=== PATIENT | female | born 1985 | race Caucasian/White ===

== ENCOUNTER → 2016-05-01 | Outpatient (CLI) | payer OTHER ==
[~2016-05-01] MED LIST: GABA1CAP PO; LEXAPRO PO; TRAZ100T29 PO
[2016-05-01 12:10] LABS: BASO % 0.2 %; BASO ABS # 0.03 K/uL (0-0.2); COMPLETE YES; EOS % 1.4 %; HEMATOCRIT 41.7 % (37-47); IG% 0.2 %; LYMPH % 20.5 %; LYMPH ABS # 2.55 K/uL (1.2-3.4); MEAN CELL VOLUME 91.9 fL (80-100); MEAN CORPUSCULAR HEMOGLOBIN 30.8 pg (25-34); MEAN CORPUSCULAR HGB CONC 33.6 g/dl (32-36); MEAN PLATELET VOLUME 9.9 fL (7.4-10.4); MONO % 6.3 %; NEUT % 71.4 %; PLATELET COUNT 333 K/uL (130-400); RED BLOOD COUNT 4.54 M/uL (4.2-5.4); WHITE BLOOD COUNT 12.41 K/uL (4.8-10.8)
[2016-05-01 12:32] LABS: ALT/SGPT 30 U/L (12-78); BLOOD UREA NITROGEN 12 mg/dl (7-18); BUN/CREATININE RATIO 12.2 (10-20); CALCIUM 8.3 mg/dl (8.5-10.1); CARBON DIOXIDE 24 mmol/L (21-32); CHLORIDE 109 mmol/L (98-107); CHOLESTEROL 127 mg/dl (0-200); CREATININE 0.96 mg/dl (0.60-1.20); GLUCOSE 98 mg/dl (70-99); POTASSIUM 4.1 mmol/L (3.5-5.1); SODIUM 141 mmol/L (136-145); TRIGLYCERIDES 136 mg/dl (0-150); VERY LOW DENSITY LIPOPROT CALC 27 mg/dl
[2016-05-01 12:42] LABS: ALB/GLOB RATIO 1.3 (0.9-2); ALKALINE PHOSPHATASE 43 U/L (45-117); AST/SGOT 17 U/L (15-37); CHOLESTEROL/HDL RATIO 3.1; HDL CHOLESTEROL 41 mg/dl; LDL CHOLESTEROL CALCULATED 59 mg/dl
== END | disposition home or self-care (01) ==
LOC: C.LAB1850 10:42
PROVIDERS: ATTEND Nurse Practitioner Family
DX: Z13.1 Encounter for screening for diabetes mellitus (principal); Z13.220 Encounter for screening for lipoid disorders

== ENCOUNTER → 2016-05-29 | Outpatient (CLI) | payer OTHER ==
--- NOTE | 2016-05-29 10:02 | DIAGNOSTIC IMAGING REPORT ---
LEFT FOOT MIN 3 VIEWS ROUTINE CLINICAL HISTORY: BILATERAL FOOT PAIN pain COMPARISON: None. DISCUSSION: Small bunion deformity distal first metatarsal. All remaining osseous structures are unremarkable. Alignment is anatomic. Bone mineralization within normal limits. There is no evidence for soft tissue swelling. IMPRESSION: Small bunion deformity distal first metatarsal. Otherwise negative study Electronically signed by: Blake Guerin M.D. 05/29/2016 10:01 AM Dictated Date/Time: 05/29/2016 10:00 AM
--- NOTE | 2016-05-29 10:03 | DIAGNOSTIC IMAGING REPORT ---
RIGHT FOOT MIN 3 VIEWS ROUTINE CLINICAL HISTORY: BUNIONS Right pain COMPARISON: None. DISCUSSION: Small bunion deformity distal first metatarsal. All remaining osseous structures are unremarkable. No abnormal depressed reaction. Cortical margins are intact. There is no evidence for soft tissue swelling. IMPRESSION: Small bunion distal aspect first metatarsal Electronically signed by: Blake Guerin M.D. 05/29/2016 10:02 AM Dictated Date/Time: 05/29/2016 10:02 AM
--- NOTE | 2016-05-31 11:50 | CODING QUERY NO DIAGNOSIS ---
: 1985 TREATMENT RENDERED WITHOUT A DIAGNOSIS To promote full compliance with coding requirements relating to patient care, physician participation is requested in all cases of sawmill supervisor uncertainty. Please assist us with providing a diagnosis/symptom for the test(s) below: A diagnosis/symptom was not documented on your Order. A valid diagnosis/symptom is required to bill all insurances. Please remember that we are unable to code a diagnosis of rule out, probable, possible, questionable, or suspected. Tests that require a diagnosis: DOS: 05/29/16 * Bilateral Foot X-rays DIAGNOSIS: Provider Signature: Date: Thank you Silvana Pantoja Health Information Management Once completed, please kindly fax back to [phone] For questions please call [phone]
== END | disposition home or self-care (01) ==
LOC: C.RAD 09:27
PROVIDERS: ATTEND Podiatrist Foot & Ankle Surgery
DX: M77.8 Other enthesopathies, not elsewhere classified (principal); M20.12 Hallux valgus (acquired), left foot; M20.11 Hallux valgus (acquired), right foot; M21.612 Bunion of left foot; M21.611 Bunion of right foot

== ENCOUNTER → 2017-04-28 | Outpatient (CLI) | payer OTHER ==
[2017-04-28 12:59] LABS: BASO % 0.5 %; BASO ABS # 0.05 K/uL (0-0.2); EOS % 8.7 %; EOS ABS # 0.84 K/uL (0-0.5); HEMATOCRIT 39.6 % (37-47); HEMOGLOBIN 13.1 g/dL (12.0-16.0); IG# 0.02 K/uL (0.00-0.02); LYMPH % 32.7 %; LYMPH ABS # 3.17 K/uL (1.2-3.4); MEAN CELL VOLUME 93.4 fL (80-100); MEAN CORPUSCULAR HEMOGLOBIN 30.9 pg (25-34); MEAN CORPUSCULAR HGB CONC 33.1 g/dl (32-36); MEAN PLATELET VOLUME 9.5 fL (7.4-10.4); MONO % 7.4 %; MONO ABS # 0.72 K/uL (0.11-0.59); NEUT % 50.5 %; NEUT ABS # 4.89 K/uL (1.4-6.5); PLATELET COUNT 309 K/uL (130-400); RED CELL DISTRIBUTION WIDTH CV 12.7 % (11.5-14.5); RED CELL DISTRIBUTION WIDTH SD 43.5 fL (36.4-46.3); WHITE BLOOD COUNT 9.69 K/uL (4.8-10.8)
[2017-04-28 13:26] LABS: T3 FREE 2.9 pg/ml (2.30-4.20)
[2017-04-28 13:33] LABS: ALBUMIN 3.5 gm/dl (3.4-5.0); ALT/SGPT 21 U/L (12-78); AST/SGOT 10 U/L (15-37); BLOOD UREA NITROGEN 7 mg/dl (7-18); CARBON DIOXIDE 29 mmol/L (21-32); CREATININE 0.84 mg/dl (0.60-1.20); GLUCOSE 93 mg/dl (70-99); POTASSIUM 4.1 mmol/L (3.5-5.1); SODIUM 136 mmol/L (136-145)
[2017-04-28 13:46] LABS: ALKALINE PHOSPHATASE 56 U/L (45-117); TOTAL PROTEIN 6.9 gm/dl (6.4-8.2)
== END | disposition home or self-care (01) ==
LOC: C.LAB 12:12
PROVIDERS: ATTEND Nurse Practitioner Family
DX: R53.83 Other fatigue (principal)

== ENCOUNTER 2023-08-02 22:14 | Inpatient (IN) ==
--- OUTSIDE RECORDS SUMMARY | 2023-08-02 22:40 | External Medical Summary | Summary of Care ---
Author Name Unknown Organization [facility] Address [address] [place] [address] Phone [phone] Care Team Providers Care Cath Lab Tech Name Role Phone Harman Helm Primary Care Provider [phone] Reason for Visit * Reason Comments Return Visit Encounter Details Date Type Department Care Team (Late st Contact Info) Description 07/29/2023 8:15 AM EDT Office Visit Gynecology/Obstetric s [facility] Salazar [address] [place] [address] Monica Chavis CRNP [address] [facility] [place] [address] Multigravida of advanced maternal age in third trimester*; Normal in third trimester; Factor V Leiden mutation affecting (HCC); Antepartum anemia; Uterine size date discrepancy Allergies No known active allergiesdocumented as of this encounter (statuses as of 07/29/2023) Medications Medication Sig Dispensed Refills Start Date End Date Status 19 29-1 MG Oral Tablet Chewable Take by mouth. 0 Active Aspirin 81 MG Oral Tablet Chewable Take 1 Tablet by mouth in the morning. 0 Active Breast PumpIndications:[place]yen st feeding status of mother KAYE 08/02/23, Z39.1, double electric pump 1 Each 0 05/11/2023 Active Vitron-C 65-125 MG Oral Tablet (Iron-Vitamin C 65-125 mg per tab)Indications:Ante anemia Take 1 Tablet by mouth in the morning and 1 Tablet before bedtime. 90 Tablet 2 05/12/2023 Active Docusate Sodium 100 MG Oral Capsule (Colace)Indications: Antepartum anemia Take 1 Capsule by mouth 2 times a day as needed for Constipation. 60 Capsule 5 05/12/2023 Active documented as of this encounter (statuses as of 07/29/2023) Active Problems Problem Noted Date Diagnosed Date Abnormal GTT (glucose tolerance test) 05/12/2023 Antepartum anemia 05/12/2023 Normal 05/11/2023 Factor V Leiden mutation affecting 08/2023 Overview: Pt advised to take ASA Recommendations per Ask-a-Doc with MFM: Recommendations: Reviewed that patients with heterozygous factor V Leiden mutation and no history of VTE have 0.5% to 3.1% risk for developing a VTE during . For these patients we do not recommend anticoagulation therapy during the antepartum stage of . Prophylactic anticoagulation therapy should be considered in the stage if the patient has additional risk factors (first-degree relative with a history of thrombotic event, obesity, prolonged immobility, or delivery). Reviewed that patients with heterozygous factor V Leiden mutation with a previous history of VTE have 10% risk for developing a VTE during . For these patients we recommend treatment with intermediate-dose anticoagulation during and period. Reviewed that patients with homozygous factor V Leiden mutation with no history of VTE have 2.2% to 14.0% risk for developing a VTE during . For these patients we recommend treatment with intermediate-dose anticoagulation during and period. Reviewed that patients with homozygous factor V Leiden mutation with a previous history of VTE have 17% risk for developing a VTE during . For these patients we recommend treatment with adjusted dose anticoagulation during and period. Discussed that factor V Leiden gene mutation is autosomal dominant in inheritance, and there is at least a 50% chance that her child may be heterozygous for this gene if she is homozygous and at least a 25% chance that her child may be a heterozygous carrier of this gene if she is a carrier. Testing for factor V Leiden mutation is reliable during and an acute VTE, and genetic testing is reliable while receiving anticoagulation therapy. 06/22/2023: patient was to verify status of homo or heterozygous. Advised by hematology to take 81 mg ASA. Pt had previously declined MFM consult with JERARDO. 06/24/2023: records from [facility] Hematology reviewed and patient noted to be HETEROZYGOUS. No personal history of VTE, VTE in second degree relative. AMA (advanced maternal age) multigravida 35+ 12/2022 Tobacco use 06/10/2022 Alcohol abuse Estimated Date of Delivery Comme nts Yes 08/02/2023 Based on last me nstrual period of 10/26/2022 (Exact Date) documented as of this encounter (statuses as of 07/29/2023) Resolved Problems Problem Noted Date Diagnosed Date Resolved Date Tobacco smoking complicating 05/11/2023 05/11/2023 Food insecurity 01/12/2023 04/16/2023 Overview: Per [facility] Protocol documented as of this encounter (statuses as of 07/29/2023) Immunizations Name Administration Dates Next Due Seasonal Influenza, PF, 6 M & above, IM , (FluLaval or Fluzone) 04/13/2023 TDAP (age 10 and older)(Boostrix) 05/11/2023 documented as of this encounter Social History Tobacco Use Types Packs/Day Years Used Date Smoking Tobacco: Former Cigarettes Smokeless Tobacco: Never Comments:on the patch dece er 2017 Alcohol Use Standard Drinks/Week Comments Not Currently 0 (1 standard drink = 0.6 oz pur e alcohol) PHQ-2 Answer Date Recorded PHQ Adult Total Score 1 05/28/2023 Hunger Vital Sign Answer Date Recorded Within the past 12 months, y ou worried that your food would run out before you got the money to buy more. Never true 03/15/20 23 Within the past 12 months, t he food you bought just didn't last and you didn't have money to get more. Never true 03/15/2023 [place] Depression Scale Answer Date Recorded [place] Depression Scale Total 3 06/22/2023 The thought of harming myself has occurred to me . Never 06/22/2023 Estimated Date of Delivery Comme nts Yes 08/02/2023 Based on last me nstrual period of 10/26/2022 (Exact Date) Sex and Gender Information Value Date Recorded Sex Assigned at Female 12/01/2022 12:38 PM EDT Gender Identity Female 12/01/2022 12:38 PM EDT Sexual Orientation Straight 12/21/2022 10 :12 AM EDT Job Start Date Occupation Industry Not on file Not on file Not on file documented as of this encounter Last Filed Vital Signs Vital Sign Reading Time Taken Comments Blood Pressure 124/76 07/29/2023 8:14 AM EDT Pulse - - Temperature - - Respiratory Rate - - Oxygen Saturation - - Inhaled Oxygen Concentration - - Weight 84.4 kg (186 lb) 07/29/2023 8:14 AM EDT Height 151.8 cm (4' 11.75") 07/29/2023 8:14 AM E DT Body Mass Index 36.63 07/29/2023 8:14 AM EDT documented in this encounter Progress Notes * Monica Chavis CRNP - 07/29/2023 8:26 AM EDT 39w3d Feeling uncomfortable, having a lot of back pain. Baby is active. Some BH contractions, no bleeding, no LOF. Trace edema BLE. Size>dates, measuring 42cm today. IOL is not until 08/10. Will get growth u/s. FELECIA Reyna * Sofie Martínez LPN - 07/29/2023 8:15 AM EDT 39w3d Denies any concerns documented in this encounter Plan of Treatment Upcoming Encounters Date Type Department Care Team (Late st Contact Info) Description 07/29/2023 2:30 PM EDT Imaging Radiology [facility] [address] [place] [phone] 08/07/2023 8:30 AM EDT Office Visit Gynecology/Obstetrics [facility] [address] [place] [address] BackerSumi CRNP [address] [place] [address] Scheduled Orders Name Type Priority Associated Diagnoses Orde r Schedule US PREG FOLLOW-UP EACH FETUS Medical Imaging Routine Uterine size date discrepancy Expected: 07/29/2023 (Approximate), Expires: 08/27/2024 Health Maintenance Due Date Last Done Comments Diabetes Screening 1985 Pneumococcal Vaccine: Pediatrics (0 to 5 Years) and At-Risk Patients (6 to 64 Years) (1 of 2 - PCV) 06/15/1991 COVID-19 Vaccine (5 - 2022- season) 2022 07/14/2022, 02/26/2021, 09/27/2020, Additional history exists Depression Screening 05/28/2024 05/28/2023 Pap Smear 12/26/2025 12/26/2022, 04/06, 04/23/2016 Cervical Cancer Screening 12/27/2027 HPV/Co-Test 12/27/2027 12/26/2022 DTaP,Tdap,and Td Vaccines (3 - Td or Tdap) 05/11/2033 05/11/2023, 06/12/2019 Influenza Vaccine (FLU shot) Completed 04/13/2023, 04/14/2022 GARDASIL-HPV IMMUNIZATION SERIES Aged Out No longer eligible based on patient's age to complete this topic MENINGOCOCCAL (MENACTRA/MENVEO) Aged Out No longer eligible based on patient's age to complete this topic documented as of this encounter Medical Devices Not on filedocumented as of this encounter Visit Diagnoses Diagnosis Multigravida of advanced maternal age in third trimester- Primary Normal in third trimester Factor V Leiden mutation affecting (HCC) Antepartum anemia Anemia, antepartum Uterine size date discrepancy Uterine size date discrepancy, antepartum condition or complication documented in this encounter Care Teams Cath Lab Tech Relationship Specialty Start Date End Date Harman Helm CRNP [address] [address] PCP - General Nurse Practitioner 04/02/22 documented as of this encounter
--- OUTSIDE RECORDS SUMMARY | 2023-08-02 22:40 | External Medical Summary | Summary of Care ---
Author Name Unknown Organization [facility] Address [address] [place] [address] Phone [phone] Care Team Providers Care Window Display Designer Name Role Phone Harman Helm Carmen IZQUIERDO Primary Care Provider [phone] Reason for Visit * Reason Comments Return Visit Encounter Details Date Type Department Care Team (Late st Contact Info) Description 07/13/2023 4:30 PM EDT Office Visit Gynecology/Obstetric s [facility] Sal[facility] [address] [place] [address] Precious Fay PA-C [address] [place] [address] Normal in third trimester*; Multigravida of advanced maternal age in third trimester; Factor V Leiden mutation affecting (HCC); Antepartum anemia Allergies No known active allergiesdocumented as of this encounter (statuses as of 07/13/2023) Medications Medication Sig Dispensed Refills Start Date End Date Status 19 29-1 MG Oral Tablet Chewable Take by mouth. 0 Active Aspirin 81 MG Oral Tablet Chewable Take 1 Tablet by mouth in the morning. 0 Active Breast PumpIndications:[place] st feeding status of mother KAYE 08/02/23, [...] as of this encounter (statuses as of 07/13/2023) Active Problems Problem Noted Date Diagnosed Date [...] Pt had previously declined MFM consult with NOB. 06/24/2023: records from [facility] Hematology reviewed and patient noted to be HETEROZYGOUS. No personal history of VTE, VTE in second degree relative. AMA (advanced maternal age) multigravida 35+ 12/2022 Tobacco use 06/10/2022 Alcohol abuse Estimated Date of Delivery Comme nts Yes 08/02/2023 Based on last me nstrual period of 10/26/2022 (Exact Date) documented as of this encounter (statuses as of 07/13/2023) Resolved Problems Problem Noted Date Diagnosed Date Resolved Date Tobacco smoking complicating 05/11/2023 05/11/2023 Food insecurity 01/12/2023 04/16/2023 Overview: Per [facility] Protocol documented as of this encounter (statuses as of 07/13/2023) Immunizations Name Administration Dates Next Due Seasonal Influenza, PF, 6 M & above, IM , (FluLaval or Fluzone) 04/13/2023 TDAP (age 10 and older)(Boostrix) 05/11/2023 documented as of this encounter Social History Tobacco Use Types Packs/Day Years Used Date Smoking Tobacco: Former Cigarettes Smokeless Tobacco: Never Comments:on the patch [facility] er 2017 Alcohol Use Standard Drinks/Week Comments [...] money to get more. Never true 03/15/2023 [place] Depression Scale Answer Date Recorded [place] Depression Scale Total 3 06/22/2023 The thought [...] Sign Reading Time Taken Comments Blood Pressure 120/70 07/13/2023 4:30 PM EDT Pulse - - Temperature - - Respiratory Rate - - Oxygen Saturation - - Inhaled Oxygen Concentration - - Weight 82.6 kg (182 lb) 07/13/2023 4:30 PM EDT Height 151.8 cm (4' 11.75") 07/13/2023 4:30 PM E DT Body Mass Index 35.84 07/13/2023 4:30 PM EDT documented in this encounter Progress Notes * Precious Fay PA-C - 07/13/2023 4:42 PM EDT 37w1d She was at L&D Thursday d/t concerns for decreased FM. Reports baby evaluated and everything was okay. She did start to feel baby while on monitor. Baby movements normal since, no further concerns.Denies VB, LOF, contractions. Labor precautions reviewed RTC in 1 week Precious Fay PA-C * Sofie Martínez LPN - 07/13/2023 4:30 PM EDT 37w1d Went to l&d on Thursday for decreased movements documented in this encounter Plan of Treatment Upcoming Encounters Date Type Department Care Team (Late st Contact Info) Description 07/21/2023 4:15 PM EDT Office Visit Gynecology/Obstetrics [facility] [address] [place] [address] Bobbi Verdugo CNM [address] [place] [address] [place] [address] 07/29/2023 8:15 AM EDT Office Visit Gynecology/Obstetrics [facility] Salazar [address] [place] [address] Monica Chavis CRNP [address] [place] [address] Health Maintenance Due Date Last Done Comments Diabetes Screening 1985 Pneumococcal Vaccine: Pediatrics (0 to 5 Years) and At-Risk Patients (6 to 64 Years) (1 of 2 - PCV) 06/15/1991 COVID-19 Vaccine (5 - 2022-24 season) 2022 07/14/2022, 02/26/2021, 09/27/2020, Additional history [...] as of this encounter Visit Diagnoses Diagnosis Normal in third trimester- Primary Multigravida of advanced maternal age in third trimester Factor V Leiden mutation affecting (HCC) Antepartum anemia Anemia, antepartum documented in this encounter Care Teams Window Display Designer Relationship Specialty Start Date End Date Harman Helm CRNP [address] [place] [address] PCP - General Nurse Practitioner 04/02/22 documented as of this encounter
--- OUTSIDE RECORDS SUMMARY | 2023-08-02 22:40 | External Medical Summary | Summary of Care ---
Author Name Unknown Organization [facility] Address [address] [place] [address] Phone [phone] Care Team Providers Care Laminated Plastics Assembler And Gluer Name Role Phone Harman Helm Primary Care Provider [phone] Reason for Visit * Reason Comments Return Visit Encounter Details Date Type Department Care Team (Late st Contact Info) Description 07/21/2023 4:15 PM EDT Office Visit Gynecology/Obstetric s [facility] [address] [facility] [place] [address] Bobbi Verdugo [facility] [address] [facility], [place] [id number] Multigravida of advanced maternal age in third trimester*; Normal in third trimester; Factor V Leiden mutation affecting (HCC); Antepartum anemia Allergies No known active allergiesdocumented as of this encounter (statuses as of 07/21/2023) Medications Medication Sig Dispensed Refills Start Date End Date Status 19 29-1 MG Oral Tablet Chewable Take by mouth. 0 Active Aspirin 81 MG Oral Tablet Chewable Take 1 Tablet by mouth in the morning. 0 Active Breast PumpIndications:[place] st feeding status of mother KAYE 08/02/23, [...] as of this encounter (statuses as of 07/21/2023) Active Problems Problem Noted Date Diagnosed Date [...] MFM consult with NOB. 06/24/2023: records from [facility] Hematology reviewed and patient noted to be HETEROZYGOUS. No personal history of VTE, VTE in second degree relative. AMA (advanced maternal age) multigravida 35+ 12/2022 Tobacco use 06/10/2022 Alcohol abuse Estimated Date of Delivery Comme nts Yes 08/02/2023 Based on last me nstrual period of 10/26/2022 (Exact Date) documented as of this encounter (statuses as of 07/21/2023) Resolved Problems Problem Noted Date Diagnosed Date Resolved Date Tobacco smoking complicating 05/11/2023 05/11/2023 Food insecurity 01/12/2023 04/16/2023 Overview: Per [facility] Protocol documented as of this encounter (statuses as of 07/21/2023) Immunizations Name Administration Dates Next Due Seasonal [...] money to get more. Never true 03/15/2023 [place] Depression Scale Answer Date Recorded [place] Depression Scale Total 3 06/22/2023 The thought [...] Sign Reading Time Taken Comments Blood Pressure 116/78 07/21/2023 4:11 PM EDT Pulse - - Temperature - - Respiratory Rate - - Oxygen Saturation - - Inhaled Oxygen Concentration - - Weight 83 kg (183 lb) 07/21/2023 4:11 PM EDT Height 151.8 cm (4' 11.75") 07/21/2023 4:11 PM E DT Body Mass Index 36.04 07/21/2023 4:11 PM EDT documented in this encounter Progress Notes * Bobbi Verdugo CNM - 07/21/2023 4:16 PM EDT PAT at 38w2d Feeling well, starting to have some late discomforts of but managing well. Good FM. Denies any LOF, VB, or RUC. Occasional BH. Anemia, taking iron, last count 11.8. Discussed scheduling for IOL, would like to wait at least until after 41weeks, discussed she had nomedical diagnoses to contradict that. IOL scheduled for preferred date of 08/11/23. Reviewed labor warning s/s to report. RTO 1 week documented in this encounter Nursing Notes * Sri Rodriguez LPN - 07/21/2023 4:15 PM EDT 38w2d Denies concerns. documented in this encounter Plan of Treatment Upcoming Encounters Date Type Department Care Team (Late st Contact Info) Description 07/29/2023 8:15 AM EDT Office Visit Gynecology/Obstetrics [facility] [address] [place] [phone] Monica Chavis CRNP [address] [place] [address] Health Maintenance Due Date Last Done Comments [...] antepartum documented in this encounter Care Teams Laminated Plastics Assembler And Gluer Relationship Specialty Start Date End Date Harman Helm CRNP [facility] [place] [address] PCP - General Nurse Practitioner 04/02/22 documented as of this encounter
[2023-08-02] MEDS ORDERED: LIDOCAINE 1% LOCAL 20 ML VIAL INFIL PRN (22:56)
--- NOTE | 2023-08-02 23:00 | History & Physical Report ---
Date of Service August 02, 2023 Assessment & Plan (1) 40 weeks gestation of : Plan: Admit, routine labs urine tox screen and hepatitis, HIV and syphilis testing Start oxytocin for augmentation Epidural if patient request Anticipate spontaneous vaginal delivery (2) Obesity affecting in third trimester: (3) AMA (advanced maternal age) multigravida 35+: (4) Antepartum anemia complicating in third trimester: Plan: Admission H&H pending (5) H/O intravenous drug use: Plan: Patient agreeable to urine drug screen on admission If any positive will get case management on board (6) Positive GBS test: Plan: Start IV penicillin G for GBS prophylaxis (7) Factor 5 Leiden mutation, heterozygous: Plan: Plan for Lovenox 6-week as patient is class I obesity SCDs while in bed History of Present Illness Chief Complaint: LOF, CTX Primary Care Provider: Harman Helm III, FELECIA Patient is a 38-year-old -0-2-0 at 40 weeks and 0 days dated by last menstrual period consistent with 8-week ultrasound who presents to labor and delivery for ongoing leakage of fluid since 12 PM. Patient was more mucousy and recommend patient come to labor and delivery earlier today when she called the answering service but she declined to do so. She then presented as she was having worsening contractions every 8 to 10 minutes. Patient's has been complicated by GBS positive, abnormal glucose tolerance test in which 3 hours normal, class I obesity, factor V Leiden mutation heterogeneous with the plan for enoxaparin if she undergoes a /obesity/high risk factors including limited mobility, history of illicit drug use. Upon further questioning patient states she has been clean for 3 years and 7 months and has "used everything under the sun". Was previously using methamphetamines, opioids, heroin, including IV drug use. Denies any use of 30 needles in the past. History of alcohol abuse which she was in rehab for. Only drug use in she admits to his marijuana which she stopped in May, and tobacco use earlier in . Denies any alcohol or IV drug use in Additional complications including AMA, and antepartum anemia Allergies Allergy/AdvReac Type Severity Reaction Status Date / Time No Known Allergies Allergy Verified 05/27/23 17:27 Home Medications Medication Instructions Recorded Confirmed Type aspirin 81 mg tablet,delayed 81 mg PO DAILY 07/14/22 08/02/23 History release (Adult Aspirin Regimen) docusate sodium 100 mg capsule 100 mg PO BID PRN Constipation 05/27/23 08/02/23 History (Colace) iron,carbonyl 65 mg-vitamin C 125 1 tab PO BID 05/27/23 08/02/23 History mg tablet,delayed release (Vitron-C) vit no.95-ferrous 1 tab PO DAILY 05/27/23 08/02/23 History fumarate 28 mg-folic acid 800 mcg tablet () Patient History Medical History Encounter for cosmetic procedure Bunion of unspecified foot Insomnia Status post elective Palpitation Nausea & vomiting Hypokalemia Hyperventilation syndrome Hematemesis Epigastric abdominal pain Dehydration Anxiety Alcohol intoxication Abdominal pain Tendonitis of ankle Urinary problem Stomach ulcer Stomach problems Pneumonia Bronchitis Surgical History History of hernia repair 2018 Family History Grandfather (Paternal) Prostate cancer Other Gall bladder disease Heart disease Denies family history of Ovarian cancer Breast cancer Colorectal cancer Hypertension Social History Smoking Status: Former smoker Tobacco Type: Cigarettes Age Quit Using Tobacco: 36; Second Hand Exposure: Yes; Do You Dip or Chew Tobacco: No; Hx Alcohol Use: No Hx Substance Use: Yes Last Used Substance Other:: 3.5 years ago Preferred Language: [place] Visual Impairment: No Limitations Hearing Ability: Normal marital status: Current Living Situation: Spouse current occupational status: employed 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 Denies any history of STDs Review of Systems All systems reviewed & are unremarkable except as noted in HPI & below Physical Exam Constitutional: WD/WN, vitals as above Respiratory: normal respiratory effort, lungs clear to auscultation Cardiovascular: RRR, no murmur, no edema Gastrointestinal (Abdomen): normal bowel sounds, soft, nontender, no hepatosplenomegaly Cephalic by Johny, estimated weight 3500g Genitourinary: External genitalia: Normal Sterile speculum exam noted gross rupture of membranes with clear blood-tinged fluid Cervix: 260/-3 Results & Data Vital Signs (Past 12 Hours) Vital Signs Temp Pulse Resp BP 08/02/23 22:31 93 H 132/82 08/02/23 22:30 16 08/02/23 22:30 36.5 C 16 Code Status & VTE Plan VTE Prophylaxis Plan VTE Prophylaxis will be ordered: Yes Monitoring External Monitor heart tracing: Baseline 130, moderate variability, positive accelerations no decelerations, category 1 tracing Tocodynamometer Contractions every 3 to 8-minute (2) Obesity affecting in third trimester Obesity type affecting : other obesity due to excess calories Qualified Code(s): O99.213 - Obesity complicating , third trimester; E66.09 - Other obesity due to excess calories (3) AMA (advanced maternal age) multigravida 35+ Trimester: third trimester Qualified Code(s): O09.523 - Supervision of myriam cardona multigravida, third trimester
--- OUTSIDE RECORDS SUMMARY | 2023-08-02 23:06 | External Medical Summary | Summary of Care ---
Author Name Unknown Organization [facility] Address [address] [place] [address] Phone [phone] Care Team Providers Care Supervisor Brake Repair Name Role Phone Harman Helm Primary Care Provider [phone] Reason for Visit * Reason Comments Return Visit Encounter Details Date Type Department Care Team (Late st Contact Info) Description 07/29/2023 8:15 AM EDT Office Visit Gynecology/Obstetric s Lorene Salazar [address] [place] [phone] Monica Chavis CRNP [address] [facility] [place] [address] Multigravida of advanced maternal age in third trimester*; Normal in third trimester; Factor V Leiden mutation affecting (HCC); Antepartum anemia; Uterine size date discrepancy Allergies No known active allergiesdocumented as of this encounter (statuses as of 08/02/2023) Medications Medication Sig Dispensed Refills Start Date [...] as of this encounter (statuses as of 08/02/2023) Active Problems Problem Noted Date Diagnosed Date [...] MFM consult with JERARDO. 06/24/2023: records from [facility] reviewed and patient noted to be HETEROZYGOUS. No personal history of VTE, VTE in second degree relative. AMA (advanced maternal age) multigravida 35+ 12/2022 Tobacco use 06/10/2022 Alcohol abuse Estimated Date of Delivery Comme nts Yes 08/02/2023 Based on last me nstrual period of 10/26/2022 (Exact Date) documented as of this encounter (statuses as of 08/02/2023) Resolved Problems Problem Noted Date Diagnosed Date Resolved Date Tobacco smoking complicating 05/11/2023 05/11/2023 Food insecurity 01/12/2023 04/16/2023 Overview: Per [facility] Protocol documented as of this encounter (statuses as of 08/02/2023) Immunizations Name Administration Dates Next Due Seasonal [...] money to get more. Never true 03/15/2023 [place] Depression Scale Answer Date Recorded [place] Depression Scale Total 3 06/22/2023 The thought [...] Care Team (Late st Contact Info) Description 08/07/2023 8:30 AM EDT Office Visit Gynecology/Obstetrics Morganmitali Salazar [address] [phone] Sumi Bedoya CRNP [address] [address] Health Maintenance Due Date Last Done Comments Diabetes Screening 1985 Pneumococcal Vaccine: Pediatrics (0 to 5 Years) and At-Risk Patients (6 to 64 Years) (1 of 2 - PCV) 06/15/1991 COVID-19 Vaccine (5 - season) 2022 07/14/2022, 02/26/2021, 09/27/2020, Additional history [...] Not on filedocumented as of this encounter Results * US PREG FOLLOW-UP EACH FETUS (07/29/2023 3:16 PM EDT) Anatomical Region Laterality Modality Pelvis, Body Ultrasound 07/29/2023 6:00 PM EDT Impressions 07/29/2023 5:58 PM EDT IMPRESSION 1. Limited ultrasound as detailed above. 2. The amniotic fluid index measures 23.3 cm corresponding to greater than 95%. Narrative 07/29/2023 5:58 PM EDT EXAM US PREG FOLLOW-UP EACH FETUS-07/29/2023 3:16 pm HISTORY growth. size>dates COMPARISON Ultrasound dated 05/28/2023 TECHNIQUE Limited ultrasound FINDINGS The patient's KAYE is 08/04/2023. Per KAYE, the gestational age is 39 weeks 1 day. The presentation is cephalic. The heart rate measures 137 beats per minute. There is a posterior placenta. The placenta was not evaluated on this exam. The amniotic fluid index measures 23.3 cm corresponding to greater than 95%. BPD measures 8.93 cm corresponding to 36 weeks 1 day. HC measures 32.2 cm corresponding to 36 weeks 3 days. AC measures 33.8 cm corresponding to 37 weeks 5 days. FL measures 7.5 cm corresponding to 38 weeks 3 days. HL measures 6.41 cm corresponding to 37 weeks 1 day. AUA: 37 weeks 1 day EFW: 3233 g +/- 485 g (7 lb 2 oz +/- 1 lb 1 oz), corresponding to 31%. Procedure Note Cassie Patel MD - 07/29/2023 EXAM US PREG FOLLOW-UP EACH FETUS-07/29/2023 3:16 pm HISTORY growth. size>dates COMPARISON Ultrasound dated 05/28/2023 TECHNIQUE Limited ultrasound FINDINGS The patient's KAYE is 08/04/2023. Per KAYE, the gestational age is 39 weeks1 day. The presentation is cephalic. The heart rate measures 137beats per minute. There is a posterior placenta. The placenta was notevaluated on this exam. The amniotic fluid index measures 23.3 cmcorresponding to greater than 95%. BPD measures 8.93 cm corresponding to 36 weeks 1 day. HC measures 32.2 cm corresponding to 36 weeks 3 days. AC measures 33.8 cm corresponding to 37 weeks 5 days. FL measures 7.5 cm corresponding to 38 weeks 3 days. HL measures 6.41 cm corresponding to 37 weeks 1 day. AUA: 37 weeks 1 day EFW: 3233 g +/- 485 g (7 lb 2 oz +/- 1 lb 1 oz), corresponding to 31%. IMPRESSION IMPRESSION 1. Limited ultrasound as detailed above. 2. The amniotic fluid index measures 23.3 cm corresponding to greaterthan 95%. Monica IZQUIREDO RAD ULTRASOUND documented in this encounter Visit Diagnoses Diagnosis Multigravida of advanced maternal age in third trimester- Primary Normal in third trimester Factor V Leiden mutation affecting (HCC) Antepartum anemia Anemia, antepartum Uterine size date discrepancy Uterine size date discrepancy, antepartum condition or complication Uterine size date discrepancy Uterine size date discrepancy, antepartum condition or complication documented in this encounter Care Teams Supervisor Brake Repair Relationship Specialty Start Date End Date Harman Helm CRNP [address] [place] [address] [place] [address] PCP - General Nurse Practitioner 04/02/22 documented as of this encounter
[2023-08-02] MEDS: PENICILLIN GK 6 MU in DEXTROSE 5% 250 ML IV STA (23:30)
[2023-08-02] MEDS: OXYTOCIN 30 UNITS/NSS 30 UNITS/500 ML BAG IV PRN (23:30)
[2023-08-02] MEDS: LACTATED RINGER'S 1,000 ML IV PRN (23:30)
[2023-08-02 23:34] LABS: Hematocrit (blood only) 37.4 % (37.0-47.0); Hemoglobin 12.4 g/dl (12.0-16.0); Mean Corpuscular Hemoglobin 29.8 pg (25.0-34.0); Mean Corpuscular Hgb Conc 33.2 g/dL (32.0-36.0); Mean Corpuscular Volume 89.9 fL (80.0-100.0); Mean Platelet Volume 11.2 fL (9.4-12.4); Platelet Count 185 K/uL (130-400); RDW Standard Deviation 42.5 fL (36.4-46.3); Red Blood Count 4.16 M/uL (4.20-5.40); White Blood Count 11.81 K/ul (4.8-10.8)
[2023-08-02 23:49] LABS: Albumin Globulin Ratio 1.2 (0.9-2); Albumin Level 3.5 gm/dl (3.4-5.0); BUN Creatinine Ratio 20.3 (10-20); Bilirubin,Total 0.3 mg/dl (0.2-1.0); Calcium 9.8 mg/dl (8.6-10.3); Creatinine Clr Calc Pharmacy 114.9 ml/min; Est GFR (African American) 131.2 ml/min; Est GFR (Non-African American) 113.2 ml/min; Globulin 2.9 gm/dl (2.5-4.0); Potassium 3.6 mmol/L (3.5-5.1); Total Protein 6.4 gm/dl (6.0-8.3)
[2023-08-03 00:04] LABS: Amphetamines+Metham, Urine Neg (Neg); Barbiturates, Urine Neg (Neg); Benzodiazepine, Urine Neg (Neg); Cocaine, Urine Neg (Neg); MDMA (Ecstacy), Urine Neg (Neg); Marijuana, Urine Neg (Neg); Methadone, Urine Neg (Neg); Opiate, Urine Neg (Neg); Phencyclidine, Urine Neg (Neg)
[2023-08-03] MEDS: PENICILLIN GK 3 MU in DEXTROSE 5% 100 ML IV PRN (03:32)
--- NOTE | 2023-08-03 04:15 | Anesthesiology Consultation ---
Date of Service August 03, 2023 Assessment & Plan Chart Review Chart Review: Acceptable Risk for Labor Epidural Consults Requested none History Height/Weight Height: 5 ft Weight: 84.368 kg Allergies Allergy/AdvReac Type Severity Reaction Status Date / Time No Known Allergies Allergy Verified 05/27/23 17:27 Medications Home Medications Medication Instructions Recorded Confirmed Last Taken aspirin 81 mg tablet,delayed 81 mg PO DAILY 07/14/22 08/02/23 08/02/23 08:00 release (Adult Aspirin Regimen) docusate sodium 100 mg capsule 100 mg PO BID PRN Constipation 05/27/23 08/02/23 Unknown (Colace) iron,carbonyl 65 mg-vitamin C 125 1 tab PO BID 05/27/23 08/02/23 08/02/23 08:00 mg tablet,delayed release (Vitron-C) vit no.95-ferrous 1 tab PO DAILY 05/27/23 08/02/23 08/02/23 08:00 fumarate 28 mg-folic acid 800 mcg tablet () Active Medications Generic Name Dose Route Start Last Admin Trade Name Neriq PRN Reason Stop Dose Admin Lactated Ringer's 1,000 mls @ 125 mls/hr 08/02/23 22:56 08/02/23 23:30 Lr IV 08/04/23 22:55 125 mls/hr .Q8H PRN Administration L&D Protocol Protocol Penicillin G Potassium 3 mu/ 106 mls @ 100 mls/hr 08/03/23 01:56 08/03/23 03:32 Dextrose IV 08/13/23 01:55 100 mls/hr Q4H PRN Administration GBS(+) Until Delivery Oxytocin 30 units in 500 mls @ 8 mls/hr 08/02/23 22:58 08/03/23 01:45 Pitocin 30 Units/Nss IV 08/04/23 22:57 0.48 units/hr .Q24H PRN 8 mls/hr Labor Induction/Augmentation Titration Protocol 0.48 UNITS/HR Past Medical History Medical History Encounter for cosmetic procedure Bunion of unspecified foot Insomnia Status post elective Palpitation Nausea & vomiting Hypokalemia Hyperventilation syndrome Hematemesis Epigastric abdominal pain Dehydration Anxiety Alcohol intoxication Abdominal pain Tendonitis of ankle Urinary problem Stomach ulcer Stomach problems Pneumonia Bronchitis Past Family History Family History Grandfather (Paternal) Prostate cancer Other Gall bladder disease Heart disease Denies family history of Ovarian cancer Breast cancer Colorectal cancer Hypertension Past Surgical History Surgical History History of hernia repair 2018 Social History Smoking Status: Former smoker Do You Dip or Chew Tobacco: No Smoking End Date: january 2023 Hx Alcohol Use: Yes Hx Substance Use: Yes substance use type: does not use, former substance user, marijuana, heroin, amphetamines, IV drugs and methamphetamine Last Used Substance Other:: 3.5 years ago Physical Exam Vital Signs Last Vital Signs Temp 36.7 C 08/03/23 03:00 Pulse 75 08/03/23 03:34 Resp 16 08/03/23 03:00 BP 130/60 08/03/23 03:34 Constitutional WD/WN, vitals as above Respiratory normal respiratory effort, lungs clear to auscultation Cardiovascular RRR, no murmur, no edema Gastrointestinal (Abdomen) normal bowel sounds, soft, nontender, no hepatosplenomegaly Testing Laboratory Results 08/02/23 23:14 08/02/23 23:14
[2023-08-03] MEDS ORDERED: SODIUM CHLORIDE 0.9% PF INJ 10 ML VIAL EPI PRN (04:18)
[2023-08-03] MEDS ORDERED: LIDOCAINE 2% MPF LOCAL 5 ML VIAL EPI PRN (04:18)
[2023-08-03] MEDS ORDERED: BUPIVACAINE 0.25% PF 30 ML VIAL EPI PRN (04:18)
[2023-08-03] MEDS ORDERED: ROPIVACAINE 0.5% PF 5 MG/ML 20 ML VIAL EPI PRN (04:18)
[2023-08-03] MEDS ORDERED: NALOXONE HCL 1 MG in SODIUM CHLORIDE 0.9% 1,000 ML IV PRN (04:18)
[2023-08-03] MEDS ORDERED: NALBUPHINE HCL 5 MG in SYRINGE 0 ML IV PRN (04:18)
[2023-08-03] MEDS ORDERED: ePHEDrine sulfate 50 MG/ML AMP IV PRN (04:18)
[2023-08-03] MEDS ORDERED: fentANYL 2 MCG/ML BUPIVacaine 0.125%-NSS 100ML BAG EPI PRN (04:18)
[2023-08-03] MEDS ORDERED: NALOXONE HCL 0.4 MG/1 ML VIAL/CARP IV PRN (04:18)
[2023-08-03] MEDS ORDERED: fentaNYL citrate PF 100 MCG/2 ML VIAL EPI PRN (04:18)
[2023-08-03] MEDS ORDERED: diphenhydrAMINE 50 MG/ML VIAL IV PRN (04:18)
[2023-08-03] MEDS: LIDOCAINE 2%/EPINEPHRINE 1:200,000 20 ML PF ONE (04:50)
[2023-08-03] MEDS: fentANYL 2 MCG/ML BUPIVacaine 0.125%-NSS 100ML BAG ONE (04:50)
[2023-08-03] MEDS: BUPIVACAINE 0.25% PF 30 ML VIAL ONE (05:43)
[2023-08-03] MEDS: SODIUM CHLORIDE 0.9% PF INJ 10 ML VIAL EPI STA (05:44)
[2023-08-03] MEDS: fentaNYL citrate PF 100 MCG/2 ML VIAL EPI STA (05:44)
[2023-08-03] MEDS: BUPIVACAINE 0.25% PF 30 ML VIAL EPI STA (05:44)
[2023-08-03] MEDS: LIDOCAINE 2%/EPINEPHRINE 1:200,000 20 ML PF EPI STA (05:44)
[2023-08-03] MEDS: fentaNYL citrate PF 100 MCG/2 ML VIAL ONE (05:44)
[2023-08-03] MEDS: SODIUM CHLORIDE 0.9% PF INJ 10 ML VIAL ONE (05:44)
[2023-08-03] MEDS: ePHEDrine sulfate 50 MG/ML AMP ONE (05:44)
--- NOTE | 2023-08-03 06:34 | Obstetrical Progress Note ---
Date of Service August 03, 2023 Assessment & Plan (1) 40 weeks gestation of : Plan: Continue oxytocin for augmentation Anticipate spontaneous vaginal delivery (2) Obesity affecting in third trimester: (3) AMA (advanced maternal age) multigravida 35+: (4) Antepartum anemia complicating in third trimester: Plan: H&H on admission: 12.4/37.4% (5) H/O intravenous drug use: Plan: Admission urine tox screen negative (6) Positive GBS test: Plan: Continue IV penicillin G for GBS prophylaxis (7) Factor 5 Leiden mutation, heterozygous: Plan: Plan for Lovenox 6-week as patient is class I obesity SCDs while in bed Admission and Anticipated Discharge Date Admission Date: August 02, 2023 Subjective Patient comfortable on epidural at this time, no complaints Physical Exam 2 Genitourinary: heart tracing: Baseline 1 25-1 30, moderate variability, positive accelerations no decelerations, category 1 tracing Tocometer: Contractions every 2 minutes, oxytocin currently at 10 milliunits/h Cervix: 6/90/-1 Results & Data Vital Signs (Past 12 Hours) Vital Signs Temp Pulse Resp BP Pulse Ox 08/03/23 06:27 86 94 08/03/23 06:25 98 H 94 08/03/23 06:22 90 96 08/03/23 06:19 89 119/60 08/03/23 06:17 91 H 93 08/03/23 06:13 96 H 94 08/03/23 06:12 98 H 95 08/03/23 06:08 97 H 94 08/03/23 06:07 90 95 08/03/23 06:05 86 127/68 08/03/23 06:02 87 95 08/03/23 05:57 101 H 97 08/03/23 05:56 88 94 08/03/23 05:52 96 H 96 08/03/23 05:50 86 132/71 08/03/23 05:47 87 96 08/03/23 05:45 89 94 08/03/23 05:42 94 H 95 08/03/23 05:37 88 95 08/03/23 05:35 82 128/79 08/03/23 05:33 84 94 08/03/23 05:32 94 H 96 08/03/23 05:27 82 95 08/03/23 05:22 90 95 08/03/23 05:19 85 117/62 08/03/23 05:17 91 H 95 08/03/23 05:12 90 96 08/03/23 05:07 86 95 08/03/23 05:04 82 119/58 L 08/03/23 05:02 84 96 08/03/23 04:59 88 130/88 08/03/23 04:57 87 98 08/03/23 04:54 91 H 123/85 08/03/23 04:53 88 122/61 08/03/23 04:52 90 97 08/03/23 04:51 88 157/72 H 08/03/23 04:50 96 H 145/68 H 08/03/23 04:48 82 123/63 08/03/23 04:47 104 H 97 08/03/23 04:42 122 H 97 08/03/23 04:37 98 H 98 08/03/23 04:32 112 H 98 08/03/23 04:27 106 H 98 08/03/23 04:22 93 H 98 08/03/23 04:17 82 97 08/03/23 03:34 75 130/60 08/03/23 03:00 16 08/03/23 03:00 36.7 C 16 08/03/23 02:31 68 114/56 L 08/03/23 01:48 71 116/58 L 08/03/23 00:30 75 123/59 L 08/02/23 23:30 80 18 139/79 08/02/23 22:31 93 H 132/82 08/02/23 22:30 36.5 C 93 H 16 132/82 08/02/23 22:30 16 08/02/23 22:30 36.5 C 16 (2) Obesity affecting in third trimester Obesity type affecting : other obesity due to excess calories Qualified Code(s): O99.213 - Obesity complicating , third trimester; E66.09 - Other obesity due to excess calories (3) AMA (advanced maternal age) multigravida 35+ Trimester: third trimester Qualified Code(s): O09.523 - Supervision of elderly multigravida, third trimester
--- NOTE | 2023-08-03 10:04 | Obstetrical Progress Note ---
Date of Service August 03, 2023 Assessment & Plan Admission and Anticipated Discharge Date Admission Date: August 02, 2023 Subjective Late entry from 8:20 AM. I got the signout from Dr. Dickinson about this patient who was admitted last evening for spontaneous rupture of membranes yesterday around at 12 pm. GBS positive and has been receiving IV penicillin. She was started on IV oxytocin per protocol. I reviewed her records and confirmed with her. First full-term at 40 weeks and 1 day gestation. Patient was fully dilated and head was at 0 station this morning and was resting on her side with a peanut ball. heart rate was category 1. I checked her about half an hour ago and head was at +1 to 2 station and patient felt pressure. She pushed for about half an hour but unable to move the head. heart rate is category 1. She is not feeling any pressure or pain at the moment getting tired. Offered her labor down until she feels more pressure to push and she accepted. Continue to monitor closely, continue with IV penicillin and start pushing when she feels pressure. Results & Data Vital Signs (Past 12 Hours) Vital Signs Temp Pulse Resp BP Pulse Ox 08/03/23 09:57 93 08/03/23 09:57 110 H 08/03/23 09:57 113 H 94 08/03/23 09:52 123 H 93 08/03/23 09:51 122 H 91 08/03/23 09:50 126 H 145/78 H 08/03/23 09:47 129 H 93 08/03/23 09:45 156 H 94 08/03/23 09:42 123 H 91 08/03/23 09:40 125 H 92 08/03/23 09:37 144 H 95 08/03/23 09:35 130 H 157/79 H 08/03/23 09:32 104 H 93 08/03/23 09:30 18 08/03/23 09:30 18 08/03/23 09:27 112 H 99 08/03/23 09:22 100 H 97 08/03/23 09:17 103 H 100 08/03/23 09:12 95 H 96 08/03/23 09:07 92 H 97 08/03/23 09:05 83 133/83 08/03/23 09:02 89 96 08/03/23 09:00 18 08/03/23 09:00 18 08/03/23 08:57 90 97 08/03/23 08:52 84 96 08/03/23 08:50 81 130/71 08/03/23 08:47 84 96 08/03/23 08:42 89 97 08/03/23 08:37 88 96 08/03/23 08:34 82 114/65 08/03/23 08:32 83 95 08/03/23 08:30 18 08/03/23 08:30 18 08/03/23 08:29 85 94 08/03/23 08:27 86 95 08/03/23 08:22 84 95 08/03/23 08:21 83 94 08/03/23 08:20 85 108/64 08/03/23 08:17 88 95 08/03/23 08:16 85 94 08/03/23 08:12 86 95 08/03/23 08:10 80 94 08/03/23 08:07 84 96 08/03/23 08:05 80 116/65 08/03/23 08:02 85 96 08/03/23 08:01 88 92 08/03/23 08:00 18 08/03/23 08:00 18 08/03/23 07:57 91 H 96 08/03/23 07:52 96 08/03/23 07:52 88 08/03/23 07:52 82 94 08/03/23 07:50 82 118/62 08/03/23 07:47 87 95 08/03/23 07:42 85 96 08/03/23 07:37 83 95 08/03/23 07:35 85 137/64 08/03/23 07:32 98 H 97 08/03/23 07:27 90 93 08/03/23 07:25 90 94 08/03/23 07:22 91 H 97 08/03/23 07:19 84 129/73 08/03/23 07:17 90 95 08/03/23 07:15 18 08/03/23 07:15 36.9 C 18 08/03/23 07:12 90 95 08/03/23 07:08 87 94 08/03/23 07:07 96 H 94 08/03/23 07:04 84 128/67 08/03/23 07:03 89 93 08/03/23 07:02 95 H 96 08/03/23 06:57 91 H 95 08/03/23 06:53 92 H 94 08/03/23 06:52 90 95 08/03/23 06:49 85 116/69 08/03/23 06:47 95 08/03/23 06:47 86 08/03/23 06:47 87 94 08/03/23 06:42 92 H 95 08/03/23 06:41 91 H 94 08/03/23 06:37 87 95 08/03/23 06:35 85 113/67 94 08/03/23 06:32 90 96 08/03/23 06:30 18 08/03/23 06:30 36.8 C 18 08/03/23 06:27 86 94 08/03/23 06:25 98 H 94 08/03/23 06:22 90 96 08/03/23 06:19 89 119/60 08/03/23 06:17 91 H 93 08/03/23 06:13 96 H 94 08/03/23 06:12 98 H 95 08/03/23 06:08 97 H 94 08/03/23 06:07 90 95 08/03/23 06:05 86 127/68 08/03/23 06:02 87 95 08/03/23 05:57 101 H 97 08/03/23 05:56 88 94 08/03/23 05:52 96 H 96 08/03/23 05:50 86 132/71 08/03/23 05:47 87 96 08/03/23 05:45 89 94 08/03/23 05:42 94 H 95 08/03/23 05:37 88 95 08/03/23 05:35 82 128/79 08/03/23 05:33 84 94 08/03/23 05:32 94 H 96 08/03/23 05:27 82 95 08/03/23 05:22 90 95 08/03/23 05:19 85 117/62 08/03/23 05:17 91 H 95 08/03/23 05:12 90 96 08/03/23 05:07 86 95 08/03/23 05:04 82 119/58 L 08/03/23 05:02 84 96 08/03/23 04:59 88 130/88 08/03/23 04:57 87 98 08/03/23 04:54 91 H 123/85 08/03/23 04:53 88 122/61 08/03/23 04:52 90 97 08/03/23 04:51 88 157/72 H 08/03/23 04:50 96 H 145/68 H 08/03/23 04:48 82 123/63 08/03/23 04:47 104 H 97 08/03/23 04:42 122 H 97 08/03/23 04:37 98 H 98 08/03/23 04:32 112 H 98 08/03/23 04:27 106 H 98 08/03/23 04:22 93 H 98 08/03/23 04:17 82 97 08/03/23 03:34 75 130/60 08/03/23 03:00 16 08/03/23 03:00 36.7 C 16 08/03/23 02:31 68 114/56 L 08/03/23 01:48 71 116/58 L 08/03/23 00:30 75 123/59 L 08/02/23 23:30 80 18 139/79 08/02/23 22:31 93 H 132/82 08/02/23 22:30 36.5 C 93 H 16 132/82 08/02/23 22:30 16 08/02/23 22:30 36.5 C 16
[2023-08-03] MEDS: OXYTOCIN 30 UNITS/NSS 30 UNITS/500 ML BAG IV PRN (11:55)
[2023-08-03] MEDS ORDERED: HYDROCORTISONE ACETATE 25 MG SUPP PR PRN (12:07)
[2023-08-03] MEDS ORDERED: OXYTOCIN 30 UNITS/NSS 30 UNITS/500 ML BAG IV PRN (12:07)
[2023-08-03] MEDS ORDERED: bisacodyL 10 MG SUPP PR PRN (12:07)
[2023-08-03] MEDS ORDERED: oxyCODONE/ACETAMINOPHEN 5mg/325mg TAB PO PRN (12:07)
--- NOTE | 2023-08-03 12:17 | Delivery Summary ---
Vaginal Delivery Summary Date of Service August 03, 2023 Vaginal Delivery Summary Patient was found to be fully dilated and desired to push. She pushed for about 30 minutes and then the labor down for an hour and then pushed another 30 minutes with excellent maternal efforts. The head was but not coming out as expected. Shoulder dysplasia was suspected and the labor and delivery team and dead mail checker were notified. With the next push the head was delivered and total sign was noted. Maternal legs were hyper flexed and suprapubic pressure was applied by her nurse, the shoulders were felt to be higher in the pelvis than expected and tight nuchal cordx2 around the neck was noted. I reached posterior/right shoulder and delivered it with the arm without difficulty. Then the whole baby is delivered and nuchal cords were reduced, the cord was clamped times and cut and the infant was handed off to the pediatric team. The time between delivery head and the whole baby was 1 minute. The vagina and perineum were checked and found to have 2nd degree perineal laceration which was extending into the left and mid third of vagina. Rectal exam was done and noted good sphincter tone. The gloves were changes. The placenta was delivered spontaneously as intact and complete. Perineal body muscles around the external sphincter were held with Allis clamps and brought to the midline and sutured with 2-0 Vicryl with multiple [id number] stitches supported external sphincter. The vaginal mucosa was repaired with another sterile 2/0 vicryl and skin on subcuticular fashion. The uterus was explored and found to be empty. QBL was 212 ml. The fundus was firm. The baby was a viable female , Apgars 2/8, the weight is pending, see dictated pediatric note for details. The mother and the baby tolerated the procedure well. No complications happened other than moderate shoulder dystocia and tight nuchal cord x 2. I was present during whole procedure.
--- NOTE | 2023-08-03 12:19 | Anesthesia Procedure Note ---
Date of Service August 03, 2023 Anesthesia Post Epidural Note Vital Signs Vital Signs: Temp Pulse Resp BP Pulse Ox 36.8 C 116 H 18 131/71 83 L 08/03/23 11:55 08/03/23 12:06 08/03/23 12:10 08/03/23 12:06 08/03/23 11:24 Pain Intensity Back: Pain Intensity: 6 Notes Mental Status: alert / awake / arousable and participated in evaluation Patient Amnestic to Procedure: No Nausea / Vomiting: adequately controlled Pain: adequately controlled Airway Patency, RR, SpO2: stable & adequate BP & HR: stable & adequate Hydration State: stable & adequate Neuraxial Anesthesia: was administered and sensory block is resolving Anesthetic Complications: no major complications apparent and Pt Satisfied with anesthetic care Epidural: Removed without complications and With tip intact
[2023-08-03] MEDS: IBUPROFEN 600 MG TAB PO PRN (12:29)
[2023-08-03] MEDS: BENZOCAINE 20% SPRY 85 APPLN/85 GM CAN EXT PRN (12:30)
[2023-08-03 12:37] LABS: Base Excess Cord Arterial Bld -8.6 mEq/L (-9-1.8); CO2 Cord Arterial Blood 54 mmHg (39.1-73.5); HCO3 Cord Arterial Blood 20 mmol/L (19.7-28.5); Oxygen Sat Cord Arterial Blood < 60.0 % (<60); PO2 Cord Arterial Blood 31 mmHg (4.1-31.7); pH Cord Arterial Blood 7.18 (7.1-7.38)
[2023-08-03 12:38] LABS: Base Excess Cord Venous Blood -6.2 mEq/L (-7.7-1.9); Cord Venous Blood HCO3 20 mmol/L (18.4-26.8); Cord Venous Blood PCO2 39 mmHg (30.4-57.2); Cord Venous Blood PO2 34 mmHg (14.1-43.3); Cord Venous Blood pH 7.31 (7.20-7.44); O2 Saturation Cord Venous Bld 67.9 % (<68)
[2023-08-03] MEDS: DOCUSATE SODIUM 100 MG CAP PO SCH (20:34)
[2023-08-04] MEDS: ACETAMINOPHEN 325 MG TAB PO PRN (00:02)
[2023-08-04 06:41] LABS: Hematocrit (blood only) 28.7 % (37.0-47.0); Hemoglobin 9.6 g/dl (12.0-16.0); Mean Corpuscular Hemoglobin 30.3 pg (25.0-34.0); Mean Corpuscular Hgb Conc 33.4 g/dL (32.0-36.0); Mean Corpuscular Volume 90.5 fL (80.0-100.0); Mean Platelet Volume 10.9 fL (9.4-12.4); Platelet Count 160 K/uL (130-400); RDW Coefficient of Variation 13.1 % (11.5-14.5); RDW Standard Deviation 43.3 fL (36.4-46.3); Red Blood Count 3.17 M/uL (4.20-5.40); White Blood Count 11.98 K/ul (4.8-10.8)
[2023-08-04] MEDS: FERROUS SULFATE 325 MG TAB PO SCH (09:06)
[2023-08-04] MEDS: PRENATAL VITAMIN 1 TAB PO SCH (09:06)
--- NOTE | 2023-08-04 09:38 | Obstetrical Progress Note ---
Date of Service August 04, 2023 Subjective Ambulation: ambulating normally Voiding: no voiding problems Passing Gas:: Yes Diet Tolerance:: regular diet Lochia:: Small Feeding Type:: breast feeding Current Pain Level(1-10): 0 doing well Physical Exam Gastrointestinal (Abdomen) Inspection/Auscultation: abdomen normal to inspection Musculoskeletal Extremities: extremities normal to inspection Skin no rashes, warm and dry Neurologic patellar DTR's 2+ bilat, sensation intact Results & Data Vital Signs (Past 12 Hours) Vital Signs Temp Pulse Resp BP Pulse Ox O2 Del Method 08/04/23 08:00 36.9 C 84 16 128/85 97 Room Air 08/04/23 03:20 36.7 C 88 16 129/75 97 Room Air 08/03/23 22:35 36.7 C 81 16 114/75 97 Room Air Laboratory Results Laboratory Results - last 48 hr 08/02/23 08/02/23 08/03/23 23:14 23:15 Unknown WBC 11.81 H RBC 4.16 L Hgb 12.4 Hct 37.4 MCV 89.9 MCH 29.8 MCHC 33.2 RDW Std Deviation 42.5 RDW Coeff of Roxanne 13.0 Plt Count 185 MPV 11.2 Cord ABG pH 7.18 Cord ABG pCO2 54 Cord ABG pO2 31 Cord ABG HCO3 20 Cord ABG Base Excess -8.6 Cord ABG O2 Sat < 60.0 Cord VBG pH 7.31 Cord VBG pCO2 39 Cord VBG pO2 34 Cord VBG HCO3 20 Cord VBG Base Excess -6.2 Cord VBG O2 Sat 67.9 Blood Gas Comments GILBERT Sodium 135 L Potassium 3.6 Chloride 102 Carbon Dioxide 23 Anion Gap 10 BUN 13 Creatinine 0.64 Est Cr Clr Drug Dosing 114.9 Est GFR ( Amer) 131.2 Est GFR (Non-Af Amer) 113.2 BUN/Creatinine Ratio 20.3 H Glucose 86 Calcium 9.8 Total Bilirubin 0.3 AST 25 ALT 19 Alkaline Phosphatase 159 H Total Protein 6.4 Albumin 3.5 Globulin 2.9 Albumin/Globulin Ratio 1.2 Urine Opiates Screen Neg Ur Methadone, Qual Neg Urine Barbiturates Neg Ur Phencyclidine (PCP) Neg U Amphetamin/Meth Scrn Neg MDMA (Ecstasy) Screen Neg U Benzodiazepines Scrn Neg Ur Cocaine Metabolite Neg U Marijuana (THC) Screen Neg RPR Nonreactive 08/03/23 08/04/23 Unknown 06:17 WBC 11.98 H RBC 3.17 L Hgb 9.6 L Hct 28.7 L MCV 90.5 MCH 30.3 MCHC 33.4 RDW Std Deviation 43.3 RDW Coeff of Roxanne 13.1 Plt Count 160 MPV 10.9 Cord ABG pH Cord ABG pCO2 Cord ABG pO2 Cord ABG HCO3 Cord ABG Base Excess Cord ABG O2 Sat Cord VBG pH Cord VBG pCO2 Cord VBG pO2 Cord VBG HCO3 Cord VBG Base Excess Cord VBG O2 Sat Blood Gas Comments GILBERT Sodium Potassium Chloride Carbon Dioxide Anion Gap BUN Creatinine Est Cr Clr Drug Dosing Est GFR ( Amer) Est GFR (Non-Af Amer) BUN/Creatinine Ratio Glucose Calcium Total Bilirubin AST ALT Alkaline Phosphatase Total Protein Albumin Globulin Albumin/Globulin Ratio Urine Opiates Screen Ur Methadone, Qual Urine Barbiturates Ur Phencyclidine (PCP) U Amphetamin/Meth Scrn MDMA (Ecstasy) Screen U Benzodiazepines Scrn Ur Cocaine Metabolite U Marijuana (THC) Screen RPR
[2023-08-04 13:12] LABS: HBSAG NON-REACTIVE (NON-REACTIVE)
[2023-08-04] MEDS: bisacodyL 5 MG TABEC PO SCH (20:45)
[2023-08-04] MEDS: DIPHTHER/TETAN/PERTUS Vaccine (Tdap, Adol/Adult) 0.5mL IM ONE (20:46)
[2023-08-04] MEDS: MEASLES, MUMPS & RUBELLA VIRUS VACCINE (MMR) 0.5ML VIAL SQ ONE (20:46)
[2023-08-05] MEDS: ENOXAPARIN INJ 40 MG/0.4 ML SYR SQ SCH (06:39)
--- NOTE | 2023-08-05 08:21 | Obstetrical Progress Note ---
Date of Service August 05, 2023 Assessment & Plan Admission and Anticipated Discharge Date Admission Date: August 02, 2023 Subjective Patient is seen and examined. She feels well, no complaints. Ambulating without dizziness Voiding without difficulty Tolerating regular diet with out N&V Bleeding is minimal No fever/ chills/ CP/ SOB/ N&V/ Leg pain Breast and bottle feeding without problems Vital Signs Temp Pulse Resp BP Pulse Ox O2 Del Method 08/05/23 00:00 36.7 C 84 18 131/85 94 Room Air 08/04/23 20:45 36.7 C 83 18 127/78 97 Room Air 08/04/23 11:55 36.5 C 86 16 126/84 97 Room Air Lab Results 08/02/23 08/02/23 08/03/23 Range/Units 23:14 23:15 Unknown WBC 11.81 H (4.8-10.8) K/ul RBC 4.16 L (4.20-5.40) M/uL Hgb 12.4 (12.0-16.0) g/dl Hct 37.4 (37.0-47.0) % MCV 89.9 (80.0-100.0) fL MCH 29.8 (25.0-34.0) pg MCHC 33.2 (32.0-36.0) g/dL RDW Std Deviation 42.5 (36.4-46.3) fL RDW Coeff of Roxanne 13.0 (11.5-14.5) % Plt Count 185 (130-400) K/uL MPV 11.2 (9.4-12.4) fL Cord ABG pH 7.18 (7.1-7.38) Cord ABG pCO2 54 (39.1-73.5) mmHg Cord ABG pO2 31 (4.1-31.7) mmHg Cord ABG HCO3 20 (19.7-28.5) mmol/L Cord ABG Base Excess -8.6 (-9-1.8) mEq/L Cord ABG O2 Sat < 60.0 (<60) % Cord VBG pH 7.31 (7.20-7.44) Cord VBG pCO2 39 (30.4-57.2) mmHg Cord VBG pO2 34 (14.1-43.3) mmHg Cord VBG HCO3 20 (18.4-26.8) mmol/L Cord VBG Base Excess -6.2 (-7.7-1.9) mEq/L Cord VBG O2 Sat 67.9 (<68) % Blood Gas Comments GILBERT Sodium 135 L (136-145) mmol/L Potassium 3.6 (3.5-5.1) mmol/L Chloride 102 (98-107) mmol/L Carbon Dioxide 23 (21-32) mmol/L Anion Gap 10 (3-11) BUN 13 (6-23) mg/dl Creatinine 0.64 (0.6-1.2) mg/dl Est Cr Clr Drug Dosing 114.9 ml/min Est GFR ( Amer) 131.2 ml/min Est GFR (Non-Af Amer) 113.2 ml/min BUN/Creatinine Ratio 20.3 H (10-20) Glucose 86 (70-99(Fasting)) mg/dl Calcium 9.8 (8.6-10.3) mg/dl Total Bilirubin 0.3 (0.2-1.0) mg/dl AST 25 (13-39) U/L ALT 19 (7-52) U/L Alkaline Phosphatase 159 H (34-104) U/L Total Protein 6.4 (6.0-8.3) gm/dl Albumin 3.5 (3.4-5.0) gm/dl Globulin 2.9 (2.5-4.0) gm/dl Albumin/Globulin Ratio 1.2 (0.9-2) Urine Opiates Screen Neg (Neg) Ur Methadone, Qual Neg (Neg) Urine Barbiturates Neg (Neg) Ur Phencyclidine (PCP) Neg (Neg) U Amphetamin/Meth Scrn Neg (Neg) MDMA (Ecstasy) Screen Neg (Neg) U Benzodiazepines Scrn Neg (Neg) Ur Cocaine Metabolite Neg (Neg) U Marijuana (THC) Screen Neg (Neg) RPR Nonreactive (Nonreactive) Hep Bs Antigen NON-REACTIVE (NON-REACTIVE) Hep Bs Ag Confirmation TNP Hepatitis C Ab (EIA) NON-REACTIVE (NON-REACTIVE) HIV (1&2) Ag & Ab Conf NON-REACTIVE (NON-REACTIVE) 08/03/23 08/04/23 Range/Units Unknown 06:17 WBC 11.98 H (4.8-10.8) K/ul RBC 3.17 L (4.20-5.40) M/uL Hgb 9.6 L (12.0-16.0) g/dl Hct 28.7 L (37.0-47.0) % MCV 90.5 (80.0-100.0) fL MCH 30.3 (25.0-34.0) pg MCHC 33.4 (32.0-36.0) g/dL RDW Std Deviation 43.3 (36.4-46.3) fL RDW Coeff of Roxanne 13.1 (11.5-14.5) % Plt Count 160 (130-400) K/uL MPV 10.9 (9.4-12.4) fL Cord ABG pH (7.1-7.38) Cord ABG pCO2 (39.1-73.5) mmHg Cord ABG pO2 (4.1-31.7) mmHg Cord ABG HCO3 (19.7-28.5) mmol/L Cord ABG Base Excess (-9-1.8) mEq/L Cord ABG O2 Sat (<60) % Cord VBG pH (7.20-7.44) Cord VBG pCO2 (30.4-57.2) mmHg Cord VBG pO2 (14.1-43.3) mmHg Cord VBG HCO3 (18.4-26.8) mmol/L Cord VBG Base Excess (-7.7-1.9) mEq/L Cord VBG O2 Sat (<68) % Blood Gas Comments GILBERT Sodium (136-145) mmol/L Potassium (3.5-5.1) mmol/L Chloride (98-107) mmol/L Carbon Dioxide (21-32) mmol/L Anion Gap (3-11) BUN (6-23) mg/dl Creatinine (0.6-1.2) mg/dl Est Cr Clr Drug Dosing ml/min Est GFR ( Amer) ml/min Est GFR (Non-Af Amer) ml/min BUN/Creatinine Ratio (10-20) Glucose (70-99(Fasting)) mg/dl Calcium (8.6-10.3) mg/dl Total Bilirubin (0.2-1.0) mg/dl AST (13-39) U/L ALT (7-52) U/L Alkaline Phosphatase (34-104) U/L Total Protein (6.0-8.3) gm/dl Albumin (3.4-5.0) gm/dl Globulin (2.5-4.0) gm/dl Albumin/Globulin Ratio (0.9-2) Urine Opiates Screen (Neg) Ur Methadone, Qual (Neg) Urine Barbiturates (Neg) Ur Phencyclidine (PCP) (Neg) U Amphetamin/Meth Scrn (Neg) MDMA (Ecstasy) Screen (Neg) U Benzodiazepines Scrn (Neg) Ur Cocaine Metabolite (Neg) U Marijuana (THC) Screen (Neg) RPR (Nonreactive) Hep Bs Antigen (NON-REACTIVE) Hep Bs Ag Confirmation Hepatitis C Ab (EIA) (NON-REACTIVE) HIV (1&2) Ag & Ab Conf (NON-REACTIVE) PE: General: Alert, orientedx3, NAD Abd: soft, NT, fundus firm, below Umbilicus Perineum intact, Lochia rubra minimal Ext; NT, no edema AP: 38 yo s/p , ppd# 2 VSS Afebrile doing well H&H pending Continue routine care All questions were answered D/C home , f/u in the morning Results & Data Vital Signs (Past 12 Hours) Vital Signs Temp Pulse Resp BP Pulse Ox O2 Del Method 08/05/23 00:00 36.7 C 84 18 131/85 94 Room Air 08/04/23 20:45 36.7 C 83 18 127/78 97 Room Air
[2023-08-05 08:24] LABS: Hematocrit (blood only) 28.2 % (37.0-47.0); Hemoglobin 9.3 g/dl (12.0-16.0)
== END 2023-08-05 11:20 | disposition home or self-care (01) | DRG 806 ==
LOC: OPB 22:14 → 4S1 22:17 → 4E2 08-03 14:25